=== PATIENT | female | born 1980 | race Caucasian/White ===

== ENCOUNTER 2017-07-12 10:41 | Emergency (ER) | payer OTHER, SELFPAY ==
[2017-07-12 10:42] VITALS: BP 122/72; PULSE 77; RESP 16; TEMP 36.9; O2SAT 100; BMI 17.6
--- NOTE | 2017-07-12 10:55 | RAD_ITS ---
STUDY: X-RAY - LEFT RADIUS AND ULNA REASON FOR EXAM: Female, 36 years old. Pain following recent fall. TECHNIQUE: 2 view(s) of the forearm. COMPARISON: None. FINDINGS: There is no demonstrated soft tissue swelling. Normal visualized radius. Normal visualized ulna. RAD/Forearm 2 Views IMPRESSION: Normal x-ray examination of the radius and ulna. Electronically Signed: Montez Paredes MD at 11:27 EST Tel [phone], Service support ,
--- NOTE | 2017-07-12 11:11 | ED.VISSUMM ---
- ER Visit Summary Date of Service: 07/12/17 Chief Complaint: Proximal left forearm pain status post blunt trauma History of Present Illness: The patient is a 36 F who missed a step and fell down a few steps injuring her left forearm. She complains of pain proximal third of the left forearm. She localized the pain over the ulna. She complains of pain with movement and because of the pain her movement is limited. She denies head trauma. She denies any visual, ocular or auditory symptoms. She denies neck pain. She does complain of paresthesia left long, ring and little finger. She is on no anticoagulant. She is on immunosuppressive meds for psoriatic psoriasis. She has numerous allergies. Physical Examination: Signs are noted. HEENT is unremarkable. Trach is midline. There is no cervical spine tenderness. There is no pain the patient of the clavicle or AC joint. There is no pain the patient with a proximal humerus. There is no pain the patient over the lateral medial epicondyle. She does have pain the patient over the olecranon process and near the junction of the mid and proximal third of the ulna. There is no pain the patient over the radial head. There is no pain the patient with distal radius ulna. There is nothing the patient with the carpal bones, metacarpal bones or phalanges. Axillary, median, radial and ulnar function intact. Radial pulses palpable. Test Results: Two-view x-ray of the forearm was obtained and interpreted by me as negative. Emergency Department Course and Treatment: X-ray of the forearm was obtained to evaluate for fracture. Pain medicines were held because of her most numerous allergies. Treatment Plan: Rest, elevation, ice and [id number] analgesia Disposition: Discharged home with appropriate home-going instructions Impression: Left forearm pain secondary to blunt trauma initial encounter (contusion) This note was generated with eleni dictation software. It may contain incorrect words, spelling, and punctuation that were not noted in review of the chart prior to signing ED Disposition - Plan for ED Patient: Disposition: Home or Assisted Living Chief Complaint: Upper Extremity Injury Instructions: ED Contusion Upper Ext Referrals: Care Physician,No Primary [Primary Care Provider] - Keven Jenkins III, MD [STAFF PHYSICIAN] - 1 Week if not improving
--- NOTE | 2017-07-12 11:16 | ED.DCSUM_ITS ---
- ER Visit Summary Date of Service: 07/12/17 Chief Complaint: Proximal left forearm pain status post blunt trauma History of Present Illness: The patient is a 36 F who missed a step and fell down a few steps injuring her left forearm. She complains of pain proximal third of the left forearm. She localized the pain over the ulna. She complains of pain with movement and because of the pain her movement is limited. She denies head trauma. She denies any visual, ocular or auditory symptoms. She denies neck pain. She does complain of paresthesia left long, ring and little finger. She is on no anticoagulant. She is on immunosuppressive meds for psoriatic psoriasis. She has numerous allergies. Physical Examination: Signs are noted. HEENT is unremarkable. Trach is midline. There is no cervical spine tenderness. There is no pain the patient of the clavicle or AC joint. There is no pain the patient with a proximal humerus. There is no pain the patient over the lateral medial epicondyle. She does have pain the patient over the olecranon process and near the junction of the mid and proximal third of the ulna. There is no pain the patient over the radial head. There is no pain the patient with distal radius ulna. There is nothing the patient with the carpal bones, metacarpal bones or phalanges. Axillary, median, radial and ulnar function intact. Radial pulses palpable. Test Results: Two-view x-ray of the forearm was obtained and interpreted by me as negative. Emergency Department Course and Treatment: X-ray of the forearm was obtained to evaluate for fracture. Pain medicines were held because of her most numerous allergies. Treatment Plan: Rest, elevation, ice and [id number] analgesia Disposition: Discharged home with appropriate home-going instructions Impression: Left forearm pain secondary to blunt trauma initial encounter ( contusion) This note was generated with Alfred dictation software. It may contain incorrect words, spelling, and punctuation that were not noted in review of the chart prior to signing ED Disposition - Plan for ED Patient: Disposition: Home or Assisted Living Chief Complaint: Upper Extremity Injury Instructions: ED Contusion Upper Ext Referrals: Care Physician,No Primary [Primary Care Provider] - Keven Jenkins III, MD [STAFF PHYSICIAN] - 1 Week if not improving
[2017-07-12 11:59] VITALS: BP 100/55; RESP 18
== END 2017-07-12 12:00 | disposition home or self-care (01) ==
PROVIDERS: Emergency Provider Emergency Medicine
DX: S50.12XA Contusion of left forearm, initial encounter (principal); M79.632 Pain in left forearm; R20.2 Paresthesia of skin; L40.50 Arthropathic psoriasis, unspecified; W10.9XXA Fall (on) (from) unspecified stairs and steps, initial encounter; Y93.9 Activity, unspecified; Y92.9 Unspecified place or not applicable; Z79.899 Other long term (current) drug therapy
CPT/HCPCS: 73090; 99282